=== PATIENT | female | born 1960 | race Caucasian/White ===

== ENCOUNTER 2023-04-21 11:09 | Outpatient (CLI) | payer MEDICARE, MEDICAID ==
[2023-04-21] MEDS ORDERED: iohexol 300mg/ml 100ml inj. ONE (11:26)
== END 2023-04-21 23:59 | disposition home or self-care (01) ==
LOC: RAD 11:09
PROVIDERS: ATTEND Internal Medicine
DX: M47.814 Spondylosis without myelopathy or radiculopathy, thoracic region (principal); I51.7 Cardiomegaly; R50.9 Fever, unspecified; B99.8 Other infectious disease; Z96.82 Presence of neurostimulator
CPT/HCPCS: 71270; 72130; 72131; J3490; Q9967